=== PATIENT | female | born 1965 | race Caucasian/White ===

== ENCOUNTER 2018-08-20 07:03 | Emergency (ER) | payer BC ==
[2018-08-20 07:15] VITALS: BP 121/83
--- NOTE | 2018-08-20 07:31 | UC ---
Lower Extremity/Ankle HPI - HPI Summary HPI Summary: Patient presents for evaluation of pain and swelling and discomfort the base of her first toe on her left foot. Patient states yesterday she was cleaning when she got her left foot caught in her right leg. Patient states she felt like she extended her foot back. Patient states she has pain with walking. Patient denied with pain at rest. Patient with ecchymosis and mild swelling. Patient without previous injury to this toe. No injury to the nail bed. Patient did not fall. Patient without any other injuries. No knee or hip pain. Patient's medications reviewed this visit. - History of Current Complaint Chief Complaint: UCLowerExtremity Stated Complaint: FOOT INJURY Time Seen by Provider: 08/20/18 07:19 Hx Obtained From: Patient Hx Last Menstrual Period: uterine ablation Pain Intensity: 6 - Allergies/Home Medications Allergies/Adverse Reactions: Allergies Allergy/AdvReac Type Severity Reaction Status Date / Time No Known Allergies Allergy Verified 08/20/18 07:15 Home Medications: Home Medications Acetaminophen [Acetaminophen Extra Strength] 1,000 mg PO ONCE PRN 08/20/18 [ History Confirmed 08/20/18] Metformin HCl [Fortamet] 1,000 mg PO DAILY 08/20/18 [History Confirmed 08/20/18] PMH/Surg Hx/FS Hx/Imm Hx Previously Healthy: Yes - Surgical History Surgical History: Yes Surgery Procedure, Year, and Place: gastric bypass 2007,BILATERAL hand SPURS REMOVED,BONE SPURS BILATERAL FEET, uterine ablation, cholecystectomy, bursectomy - 2017 on right hip - Family History Known Family History: Positive: Cardiac Disease, Hypertension, Diabetes, Respiratory Disease - copd - Social History Lives: With Family Alcohol Use: None Substance Use Type: None Smoking Status (MU): Former Smoker Type: Cigarettes Have You Smoked in the Last Year: No When Did the Patient Quit Smoking/Using Tobacco: 40 years ago - Immunization History Most Recent Influenza Vaccination: not in years Most Recent Tetanus Shot: UTD Review of Systems All Other Systems Reviewed And Are Negative: Yes Skin: Positive: Bruising Musculoskeletal: Positive: Other: - left great toe Physical Exam - Summary Physical Exam Summary: Vital Signs Reviewed: Yes A+Ox3, no distress Eyes: Conjunctiva Clear ENT: Hearing grossly normal neck: supple Respiratory: Positive: No respiratory distress, No accessory muscle use Cardiovascular: skin color reflect adequate perfusion 2+ DP, CBT< 2 sec toe Musculoskeletal Exam: AQUINO x 4 without difficulty + SLE + flex/ext knee, ankle + TTP base 1st tod, base 3rd toe no crepitus Neurological: Positive: Alert, ambulatory without difficulty + gross sensation throughout Psychological: Positive: Normal Response To Family Skin: Positive: no rash, + ecchymosis base great toe left skin intact mild edeam at MTP Vital Signs: Initial Vital Signs Temp 98.6 F 08/20/18 07:08 Pulse 81 08/20/18 07:08 Resp 18 08/20/18 07:08 BP 121/83 08/20/18 07:08 Pulse Ox 99 08/20/18 07:08 Diagnostics - Radiology No standard instances Radiology Interpretation Completed By: ED Physician - no acute fracture Re-Evaluation - Re-Evaluation First Eval Re-Evaluation Time: 08:04 Comment: xray not read by radiologist - no fx my read. motrin/apap. ice. elevate f/u prn Lower Extremity Course/Dx - Course Course Of Treatment: Patient presents for evaluation of her left great toe. Patient caught it yesterday apparently and it extended. Patient with ecchymosis and edema at the base of her left great toe. Patient states she's walking with a limp. Patient denies any paresthesias. Patient took Tylenol last night no analgesia today. Patient states it only hurts with walking. Skin is intact. We will check x-ray. Patient declined Motrin. Anticipate postop shoe and crutches. Patient comfortable in agreement with plan. - Differential Dx/Diagnosis Provider Diagnosis: Contusion of toe, left, Sprain of toe, great, left Discharge - Sign-Out/Discharge Documenting (check all that apply): Patient Departure All imaging exams completed and their final reports reviewed: No - Discharge Plan Condition: Stable Disposition: HOME Patient Education Materials: Foot Contusion (ED), Foot Sprain (ED) Referrals: Beatriz Shirley [Primary Care Provider] - Scott Trent MD [Medical Doctor] - Additional Instructions: -use good support shoe for comfort -apply ice (20 min at a time) every 2-3 hours for the next 2 days -use crutches until you can walk normally without a limp -Elevate your leg - this will help with swelling and pain - Alternate ibuprofen (advil, Motrin) 600mg and tylenol every 3 hours for pain. Take with food. Do NOT take for more than 4-5 days -Contact your doctor to arrange a follow-up appointment next week. Contact your doctor or return with questions or concerns As discussed, your radiograph was reviewed by the provider that treated you tonight. It will be read by a radiologist. If there is a finding other than that discussed with you today, you will receive a call from a care provider. - Billing Disposition and Condition Condition: STABLE Disposition: Home
--- NOTE | 2018-08-20 08:12 | UC ---
- Progress Note Progress Note: Pt updated prior to discharge Matt Patient Name: JORDEN ALBA Medical Record#: [id number] Ordering Physician: Shweta Carvajal MD Acct.#: [id number] : 1965 Age: 53 Sex: F Location: [facility] Exam Date: 08/20/18730 ADM Status: REG ER Order Information: FOOT LEFT 3+ VWS Accession Number: [id number] CPT: 70557 HISTORY: base great toe, 3rd and 1st MT COMPARISONS: None VIEWS: 3 , Frontal, lateral, and oblique views of the left foot FINDINGS: BONE DENSITY: Normal. BONES: There is no displaced fracture. There are posterior and plantar calcaneal enthesophytes. JOINTS: There is mild osteoarthritis of the midfoot ALIGNMENT: There is no dislocation. SOFT TISSUES: Unremarkable. OTHER FINDINGS: None. IMPRESSION: NO ACUTE OSSEOUS INJURY. IF SYMPTOMS PERSIST, RECOMMEND REPEAT IMAGING. <Electronically signed by Alec Alcazar MD in OV> 08/20/18807 Dictated By: Alec Alcazar MD Dictated Date/Time: 08/20/18807 Transcribed Date/Time: 08/20/18806 Copy to: CC:Shweta Carvajal MD; Beatriz Shirley NP Imaging - [facility] [address] [place] [address] ph ([phone]) ph ([phone]) ph ([phone]) This report is only to be considered final once signed by the Provider(s) as displayed in the "<Electronically Signed by >" field (s). Absence of a signature indicates the report is in a draft status and still needs to be finalized. In the event this document was created by someone other than the signing Provider, the individual initiating the document will be listed in the "Entered by:" or "Dictated by:" hui. 1 of 1 Re-Evaluation - Re-Evaluation First Eval Re-Evaluation Time: 08:04 Comment: xray not read by radiologist - no fx my read. motrin/apap. ice. elevate f/u prn Course/Dx - Diagnoses Provider Diagnoses: Contusion of toe, left, Sprain of toe, great, left Discharge - Sign-Out/Discharge Documenting (check all that apply): Post-Discharge Follow Up All imaging exams completed and their final reports reviewed: Yes - Discharge Plan Condition: Stable Disposition: HOME Patient Education Materials: Foot Contusion (ED), Foot Sprain (ED) Forms: *Work Release Referrals: Scott Trent MD [Medical Doctor] - Beatriz Shirley [Primary Care Provider] - Additional Instructions: -use good support shoe for comfort -apply ice (20 min at a time) every 2-3 hours for the next 2 days -use crutches until you can walk normally without a limp -Elevate your leg - this will help with swelling and pain - Alternate ibuprofen (advil, Motrin) 600mg and tylenol every 3 hours for pain. Take with food. Do NOT take for more than 4-5 days -Contact your doctor to arrange a follow-up appointment next week. Contact your doctor or return with questions or concerns As discussed, your radiograph was reviewed by the provider that treated you tonight. It will be read by a radiologist. If there is a finding other than that discussed with you today, you will receive a call from a care provider. - Billing Disposition and Condition Condition: STABLE Disposition: Home
== END 2018-08-20 08:21 | disposition home or self-care (01) ==
LOC: UCEAST 07:03
DX: S93.502A Unspecified sprain of left great toe, initial encounter (principal); X50.0XXA Overexertion from strenuous movement or load, initial encounter; Y93.E9 Activity, other interior property and clothing maintenance; Y92.9 Unspecified place or not applicable; Z87.891 Personal history of nicotine dependence; S90.112A Contusion of left great toe without damage to nail, initial encounter
CPT/HCPCS: 99213; G0463

== ENCOUNTER 2019-09-07 12:53 | Emergency (ER) | payer BC ==
--- NOTE | 2019-09-07 14:10 | ED ---
HPI Chest Pain - HPI Summary HPI Summary: Patient is a 54-year-old female who presents emergency department for left- sided chest pain and shoulder pain that started yesterday. Patient states she is working on remodeling her attic and yesterday was holding overhead a piece of wood when she developed pain to left side of her chest and radiates into left shoulder. Patient states pain increased today to parents for evaluation. Pain is worse with movement. Past history of obesity, gastric bypass. Patient states she used to take medications for high blood pressure, hyperlipidemia and diabetes but has not since gastric bypass. Notes history of heart disease in aunts and uncle. Patient otherwise denies recent illness, fever, cough, abdominal pain. Symptoms are moderate in severity. - History of Current Complaint Chief Complaint: EDChestWallPain Time Seen by Provider: 09/07/19 13:53 Hx Obtained From: Patient Hx Last Menstrual Period: uterine ablation Pain Intensity: 7 - Allergy/Home Medications Allergies/Adverse Reactions: Allergies Allergy/AdvReac Type Severity Reaction Status Date / Time No Known Allergies Allergy Verified 09/07/19 13:05 PMH/Surg Hx/FS Hx/Imm Hx Previously Healthy: Yes Endocrine/Hematology History: Reports: Hx Diabetes - improved after Gastric Bypass surgery Denies: Hx Thyroid Disease Cardiovascular History: Reports: Hx Hypercholesterolemia - remission after gastric bypass, Hx Hypertension - remission after gastric bypass Denies: Hx Pacemaker/ICD Respiratory History: Denies: Hx Asthma, Hx Chronic Obstructive Pulmonary Disease (COPD) GI History: Denies: Hx Ulcer History: Denies: Hx Renal Disease Sensory History: Denies: Hx Hearing Aid Psychiatric History: Denies: Hx Panic Disorder - Surgical History Surgery Procedure, Year, and Place: gastric bypass 2007,BILATERAL hand SPURS REMOVED,BONE SPURS BILATERAL FEET, uterine ablation, cholecystectomy, bursectomy - 2017 on right hip Infectious Disease History: No Infectious Disease History: Denies: Hx Hepatitis, Hx Human Immunodeficiency Virus (HIV), History Other Infectious Disease, Traveled Outside the [place] in Last 30 Days - Family History Known Family History: Positive: Cardiac Disease, Hypertension, Diabetes, Respiratory Disease - copd - Social History Occupation: Employed Full-time Lives: With Family Alcohol Use: None Hx Substance Use: No Substance Use Type: Reports: None Hx Tobacco Use: Yes Smoking Status (MU): Former Smoker Type: Cigarettes Have You Smoked in the Last Year: No Review of Systems Constitutional: Negative Negative: Fever ENT: Negative Positive: Chest Pain Respiratory: Negative Negative: Shortness Of Breath, Cough Gastrointestinal: Negative Negative: Abdominal Pain, Vomiting Positive: Other - left shoulder pain Skin: Negative Neurological: Negative Negative: Weakness, Paresthesia, Numbness All Other Systems Reviewed And Are Negative: Yes Physical Exam Vital Signs On Initial Exam: Initial Vitals Temp Pulse Resp BP Pulse Ox 97.4 F 99 15 123/88 96 09/07/19 13:01 09/07/19 13:01 09/07/19 13:01 09/07/19 13:01 09/07/19 13:01 Procedures - Sedation Patient Received Moderate/Deep Sedation with Procedure: No Diagnostics - Vital Signs Vital Signs Temp Pulse Resp BP Pulse Ox 09/07/19 13:01 97.4 F 99 15 123/88 96 - Laboratory Result Diagrams: 09/07/19 15:33 09/07/19 14:36 Lab Statement: Any lab studies that have been ordered have been reviewed, and results considered in the medical decision making process. Chest Pain Course/Dx - Course Course Of Treatment: Pt. with reproducible left side chest wall pain and left shoulder pain after working on home renovations. Afebrile with stable VS. Suspect muscular in nature. HEART score 2-3, low risk. ECG done at 1416 shows a sinus rhythm of 73bpm, normal axis, no STEMI. Labs show mild elevation in ALT and glucose. Negative troponin. CXR negative for acute findings per radiology. Suspect pain secondary to muscle strain/spasm given pain is reproducible and started while pt. was lifting a heavy board. Will tx with NSAID and muscle relaxer. Pt. will call PCP on Monday for close f.u and return to er if sxs change or worsen. pt. understands and agrees with plan. - Chest Pain Differential Diagnosis/HQI/PQRI: Acute VT, ACS, Chest Wall - Diagnoses Provider Diagnoses: Chest wall pain, Muscle strain Discharge ED - Sign-Out/Discharge Documenting (check all that apply): Patient Departure - Discharge Plan Condition: Good Disposition: HOME Prescriptions: Cyclobenzaprine TAB* [Flexeril 10 MG TAB*] 10 mg PO TID PRN #12 tab PRN Reason: Pain - Moderate Naproxen [Naproxen 500 mg tab] 500 mg PO BID #20 tablet Patient Education Materials: Muscle Strain (ED), Chest Wall Pain (ED) Referrals: Beatriz Shirley [Primary Care Provider] - Additional Instructions: Follow up with PCP on Monday for recheck Take medications as directed Apply warm compresses Gentle stretching Return to ER if symptoms change or worsen - Billing Disposition and Condition Condition: GOOD Disposition: Home - Attestation Statements Provider Attestation: I was available for consult. This patient was seen by the HAR[facility]. The patient was not presented to, seen by, or examined by me. Thee Restrepo MD Addendum entered and electronically signed by Juan Miguel Guillen PA 09/08/19 07:42: ED Addendum Addendum: PE: Appearance: Pt. sitting up in bed in NAD. present Head: Normocephalic. ENT: PERRL Neck: Supple. Nontender. Heart: RRR Lungs: CTA Muscle: Pain with rotation of left shoulder and palpation over proximal humerus. Pain on palpation over left chest wall. Abd. Soft and nontender. Neuro: CN 2-12 grossly intact. Psych: affect appropriate.
[2019-09-07 15:08] LABS: Activated Partial Thrombo Time 35.8 seconds (26.0-38.0); INR 0.87 (0.82-1.09)
[2019-09-07 15:41] LABS: ABS Basophils 0.1 10^3/ul (0-0.2); ABS Eosinophils 0.1 10^3/ul (0-0.6); ABS Lymphocytes 3.2 10^3/ul (1.0-4.8); ABS Monocytes 0.5 10^3/ul (0-0.8); Eosinophil % 1.5 %; Hematocrit 42 % (35-47); Hemoglobin 14.2 g/dL (12.0-16.0); Lymphocyte % 40.6 %; Mean Corpuscular HGB Conc 34 g/dL (31-36); Mean Corpuscular Hemoglobin 29 pg (27-31); Mean Corpuscular Volume 86 fL (80-97); Mean Platelet Volume 7.2 fL (7.4-10.4); Nucleated Red Blood Cells % 0.2; Platelet Count 309 10^3/uL (150-450); Red Blood Count 4.83 10^6 /uL (3.70-4.87); Red Cell Distribution Width 14 % (10-15); White Blood Count 7.9 10^3/uL (3.5-10.8)
[2019-09-07 15:58] LABS: Albumin 4.3 g/dL (3.2-5.2); Calcium 8.7 mg/dL (8.6-10.3); Potassium 4.3 mmol/L (3.5-5.0); Total Bilirubin 0.2 mg/dL (0.2-1.0)
[2019-09-07 16:04] LABS: Albumin/Globulin Ratio 1.8 (1-3); BUN/Creatinine Ratio 24.6 (8-20); EGFR African American 123.2 (>60); EGFR Non-African American 101.8 (>60); Globulin 2.4 g/dL (2-4); Total Protein 6.7 g/dL (6.4-8.9)
[2019-09-07] MEDS ORDERED: Naproxen TAB* 250 MG PO ONE (16:35)
[2019-09-07] MEDS ORDERED: Cyclobenzaprine TAB* 10 MG PO ONE (16:35)
[2019-09-07 16:57] VITALS: BP 122/78
== END 2019-09-07 16:56 | disposition home or self-care (01) ==
LOC: ED 12:53
DX: R07.89 Other chest pain (principal); S46.912A Strain of unspecified muscle, fascia and tendon at shoulder and upper arm level, left arm, initial encounter; X58.XXXA Exposure to other specified factors, initial encounter; Y92.009 Unspecified place in unspecified non-institutional (private) residence as the place of occurrence of the external cause; E11.9 Type 2 diabetes mellitus without complications; E78.00 Pure hypercholesterolemia, unspecified; I10 Essential (primary) hypertension; Z87.891 Personal history of nicotine dependence; Z98.84 Bariatric surgery status; Z90.49 Acquired absence of other specified parts of digestive tract
CPT/HCPCS: 36415; 71045; 80053; 83605; 84484; 85025; 85610; 85730; 93005; 99283; A9270-GY

== ENCOUNTER 2021-09-14 06:28 | Observation (INO) ==
[~2021-09-14 06:28] MED LIST: Buffered Lidocaine 1% SYRIN 1 ml INTRADERM ONE; Lactated Ringers 1000 ml BAG 1,000 ML IV SCH
[2021-09-14] MEDS ORDERED: ceFAZolin 2 GM in NS PREMIX 2 GM/100 ML BAG IVPB ONE (07:00)
[2021-09-14] MEDS ORDERED: Ropivacaine 5 MG/ML 20 ML VIAL 0.5% (100 MG) ONE ×2 (07:02→10:39)
[2021-09-14] MEDS ORDERED: Propofol 10 MG/ML 20 ML BTL ONE (07:24)
[2021-09-14] MEDS ORDERED: Dexamethasone IV 4 MG/ML VIAL 1 ml VIAL ONE (07:24)
[2021-09-14] MEDS ORDERED: Midazolam 2 mg/2 ml VIAL 1 mg/ml 2 ml VIAL (2 mg) ONE (07:24)
[2021-09-14] MEDS ORDERED: Lidocaine 2% PF 5 ML VIAL ONE (07:24)
[2021-09-14] MEDS ORDERED: Ondansetron 4 mg VIAL 2 MG/ML 2 ml VIAL ONE (07:24)
[2021-09-14] MEDS ORDERED: fentaNYL 100 mcg/2 ml 50 MCG/ML VIAL ONE (07:25)
[2021-09-14] MEDS ORDERED: Rocuronium 50 mg VIAL 10 mg/ml 5 ml VIAL (50 mg) ONE (07:25)
[2021-09-14] MEDS ORDERED: diPHENhydraMINE IV 50 MG/ML 1 ml VIAL (BENADRYL) IV PRN ×2 (07:27→09:54)
[2021-09-14] MEDS ORDERED: Naloxone 0.4 mg VIAL 0.4 mg/ml 1 ml VIAL IV PRN (07:27)
[2021-09-14] MEDS ORDERED: Ondansetron 4 mg VIAL 2 MG/ML 2 ml VIAL IV PRN ×2 (07:27→09:54)
[2021-09-14] MEDS ORDERED: DiMENhydriNATE IV 50 mg/ml 1 ml VIAL IV PUSH PRN (07:27)
[2021-09-14] MEDS ORDERED: fentaNYL 100 mcg/2 ml 50 MCG/ML VIAL IV PRN (07:27)
[2021-09-14] MEDS ORDERED: HYDROmorphone 0.5 MG/0.5 ML SYRINGE ONE ×3 (08:07→10:14)
[2021-09-14] MEDS ORDERED: Ondansetron ODT 4 mg TAB 4 MG TAB PO PRN (09:54)
[2021-09-14] MEDS ORDERED: diPHENhydraMINE 25 mg TAB PO PRN (09:54)
[2021-09-14] MEDS ORDERED: Lactulose 30 ml UDC PO PRN (09:54)
[2021-09-14] MEDS ORDERED: Magnesium Hydroxide LIQ 30 ML UDC PO PRN (09:54)
[2021-09-14] MEDS ORDERED: Morphine 2 MG/ML SYRINGE IV PRN (09:54)
[2021-09-14] MEDS: Lactated Ringers 1000 ml BAG 1,000 ML IV SCH (13:28)
[2021-09-14] MEDS: ceFAZolin 1 GM ADVAN 1 GM in NS 0.9% 50 ML 50 ML IVPB SCH (17:47)
[2021-09-14] MEDS: Magnesium Hydroxide LIQ 30 ML UDC PO SCH (22:22)
[2021-09-15] MEDS: Lactated Ringers 1000 ml BAG 1,000 ML IV SCH (00:18)
[2021-09-15] MEDS: ceFAZolin 1 GM ADVAN 1 GM in NS 0.9% 50 ML 50 ML IVPB SCH ×2 (00:18→08:22)
[2021-09-15 07:21] LABS: Hematocrit 33 % (35-47); Hemoglobin 11.6 g/dL (12.0-16.0); Mean Platelet Volume 7.8 fL (7.4-10.4); Platelet Count 252 10^3/uL (150-450)
[2021-09-15 07:29] LABS: Calcium 7.8 mg/dL (8.6-10.3); Potassium 4.1 mmol/L (3.5-5.0); eGFR CKD-EPI 107.3 (>60)
[2021-09-15] MEDS: Magnesium Hydroxide LIQ 30 ML UDC PO SCH (08:23)
[2021-09-15] MEDS ORDERED: CMC: SitaGLIPtin 100 mg TAB (NF) PO SCH (09:00)
[2021-09-15] MEDS ORDERED: Vitamin THERAPEUTIC TAB PO SCH (09:00)
[2021-09-15 11:35] VITALS: BP 106/67
== END 2021-09-15 13:15 | disposition home or self-care (01) ==
LOC: INTOOBSV 06:28 → AA 06:28 → SSU 12:57
PROVIDERS: ADMIT Orthopaedic Surgery Adult Reconstructive Orthopaedic Surgery; ATTEND Orthopaedic Surgery Adult Reconstructive Orthopaedic Surgery